=== PATIENT | male | born 1970 | race Caucasian/White ===

== ENCOUNTER 2025-04-22 08:53 | Emergency (ER) | payer BC, MEDICAID ==
[~2025-04-22] VITALS: Ht 185.4 cm; Wt 98.9 kg
[2025-04-22 08:54] VITALS: TEMP 98.3
--- NOTE | 2025-04-22 09:36 | Physician Documentation ---
History of Present Illness ~ Chief Complaint: Eye Pain Stated Complaint: RIGHT EYE VISION LOSS Time Seen by MD: 09:13 Source: patient Mode of Arrival: POV, Ambulatory Exam Limitations: no limitations HPI 54-year-old male with chief complaint vision loss right visual field which he states started a week ago in the area that is black has gotten progressively larger in size. He states initially it was just a small black dot in his periphery but the black area has gotten larger and is now occupying what he describes is most of his peripheral vision. No changes in his visual acuity outside of the peripheral area of his right visual field where he states it is black. He reports "It is like a curtain has been pulled partially over my vision in my right eye." No eye pain, no headaches, no h/o eye surgery. States he is supposed to wear glasses but he does not wear them. Medication Reconciliation Allergies: Coded Allergies: No Known Allergies (Unverified , 01/20/16) Past Medical History Past Medical History: No Pertinent History Past Surgical History: noncontributory Drug Use: none Lives In: Home Review of Systems All Other Systems at this time: Reviewed and Negative Physical Exam Vital Signs: Temperature: 98.3, Source: Oral, Heart Rate: 69, Respiratory Rate: 14, BP: 156/107, Pulse Oximetry: 98, Weight: 98.900 Oxygen Flow Rate: 0 Physical Exam VISUAL ACUITY UNCORRECTED: LEFT EYE: 20/40 RIGHT EYE: 20/50 GENERAL: Alert, no acute distress. HEENT: NCAT, EOMI, PERRLA, BULBAR CONJUNCTIVA CLEAR, LEFT EYE: PERIPHERAL FIELD TEST NORMAL RIGHT EYE: FROM 60 TO 95% DEGREES PATIENT STATES UNABLE TO SEE. EYE PRESSURES CHECKED WITH TONOPEN: LEFT EYE: 13, 15, 12, 11, 15 RIGHT EYE: 13, 15, 13, 13, 12 Normal oropharynx, moist oral mucosa. NECK: Supple, trachea midline. CARDIAC: Regular rate and rhythm, no murmurs, rubs, or gallops. RESPIRATORY: Equal breath sounds, clear to auscultation bilaterally, no respiratory distress. MUSCULOSKELETAL: Normal range of motion, nontender, no swelling. Normal gait. NEUROLOGICAL: Awake, alert, and oriented x 3. SKIN: Warm/dry, no pallor, no rash. PSYCH: Alert and appropriate. Affect congruent with mood. Speech is clear. Good eye contact. Visual Acuity : Eye Location: Left Vision Acuity Degree: 20/40 Correction: Uncorrected Progress Results/Orders Reviewed/noted all lab results: Yes Results/Orders Vital Signs 04/22/25 04/22/25 08:54 09:15 Temp 98.3 Pulse 69 Resp 16 14 B/P (MAP) 156/107 Pulse Ox 98 O2 Flow Rate 0 Medical Decision Making Additional information obtaine: N/A Findings N/A Ear Diff. Dx: Considerations: Unlikely: Other Eye Diff. Dx: Considerations: Include: [place], Conjuctivits-allergic, Conjuctivitis-bacterial, Conjuctivits-chlamydial, Conjuctivitis-viral, Corneal abrasion, Corneal laceration, Corneal ulceration, Foreign body-conjuctiva, Foreign body-corneal, Foreign body-intraocular, Foreign body-lid, Glaucoma, Globe rupture, Hordeolum, Iritis, Orbital cellulitis, Periobital cellulitis, Retinal artery occulsion, Retinal vein occlusion, Rust ring, Subconjunctival hem, Ultraviolet keratitis, Uveitis, Vitreous hemorrhage, Other Nose Diff. Dx: Considerations: Unlikely: Other Tooth Diff. Dx: Considerations: Unlikely: Other Throat Diff Dx: Considerations: Unlikely: Other Departure Time of Disposition: 10:06 Disposition: 01 HOME / SELF CARE / HOMELESS Impression: Primary Impression: Peripheral visual field defect of right eye Condition: Fair Discharge Instructions: General Discharge Instructions Additional Instructions: THE VISION LOSS IN YOUR PERIPHERAL FIELD THAT HAS PROGRESSIVELY INCREASED IN SIZE OVER PAST WEEK IS CONCERNING FOR A RETINAL DETACHMENT WHICH CAN BE A SURGICAL EMERGENCY. YOU NEED TO TRY TO STAY LAYING FLAT TODAY, CERTAINLY NO EXERCISE OR PHYSICAL EXERTION. NOTHING TO EAT OR DRINK AFTER MIDNIGHT TONIGHT IN CASE YOU NEED SURGERY TOMORROW. YOU NEED TO BE IN [place] AT 8AM FOR YOUR APPOINTMENT TOMORROW MORNING. FACILITY IN [place]: [facility] [address] [place] [address] PHONE NUMBER FOR FACILITY IN [place]: [phone] Referrals: NO PRIMARY CARE PROVIDER (PCP) Education Educated: Patient Educated regarding: diagnosis, treatment, need for follow up Signature Scribe Signature: X Attestation: EDUARDO MARIE Apr 22, 2025 09:36
[2025-04-22 10:29] VITALS: BP 141/88; PULSE 59; RESP 15; O2SAT 96
== END 2025-04-22 10:32 | disposition home or self-care (01) ==
LOC: ER 08:54
DX: H53.40 Unspecified visual field defects (principal)
CPT/HCPCS: 99282